=== PATIENT | male | born 1985 | race Caucasian/White ===

== ENCOUNTER → 2017-07-11 | Outpatient (CLI) | payer OTHER ==
[~2017-07-11] MED LIST: IBU800 M1 PO; TRAMADOL HCL50 MG PO
[2017-07-11 08:34] LABS: BUN 11 mg/dl (7-24); CHLORIDE 107 mmol/L (98-107); CHOLESTEROL 191 mg/dL (<200); CREATININE 1.09 mg/dL (0.70-1.30); FREE T4 0.74 ng/dl (0.76-1.46); HDL CHOLESTEROL 43 mg/dl (40-60); LDL CHOLESTEROL 111 mg/dL (9-159); SODIUM 140 mmol/L (136-145); TRIGLYCERIDES 186 mg/dl (<150); VLDL CHOLESTEROL 37 mg/dL (6-40)
[2017-07-11 09:15] LABS: VITAMIN D, 25-HYDROXY 30.3 ng/mL (30-100)
[2017-07-12 09:09] LABS: LUTEINIZING HORMONE 004283 6.8 mIU/mL (1.7-8.6); PROLACTIN 004465 11.7 ng/mL (4.0-15.2)
== END | disposition home or self-care (01) ==
LOC: LAB 07:27
PROVIDERS: Internal Medicine
DX: E29.1 Testicular hypofunction (principal); E55.9 Vitamin D deficiency, unspecified; E66.9 Obesity, unspecified

== ENCOUNTER → 2017-10-15 | Outpatient (CLI) | payer OTHER ==
[2017-10-15 12:49] LABS: VITAMIN D, 25-HYDROXY 23.2 ng/mL (30-100)
== END | disposition home or self-care (01) ==
LOC: LAB 10:23
PROVIDERS: Internal Medicine
DX: E55.9 Vitamin D deficiency, unspecified (principal); E29.1 Testicular hypofunction

== ENCOUNTER 2017-11-30 17:27 | Emergency (ER) | payer OTHER ==
[~2017-11-30] VITALS: Ht 187.9 cm; Wt 122.5 kg
[2017-11-30 18:02] LABS: BILIRUBIN 1+ (NEGATIVE); BLOOD TRACE-INTACT (NEGATIVE); CLARITY CLEAR (CLEAR); COLOR YELLOW (YELLOW); GLUCOSE NEGATIVE (NEGATIVE); KETONE NEGATIVE (NEGATIVE); LEUKO ESTERASE NEGATIVE (NEGATIVE); NITRITE NEGATIVE (NEGATIVE); SPECIFIC GRAVITY 1.025 (1.005-1.030)
[2017-11-30 18:05] LABS: RBC 0-2 rbc/hpf (0-2)
[2017-11-30 18:06] LABS: BACTERIA 1+; EPITHELIAL CELLS 0-2; MUCOUS TRACE
[2017-11-30 18:15] LABS: BASO % 0.4 % (0.0-1.0); EOS # 0.2 10*3/uL (0.0-0.4); EOS % 2.9 % (1.0-4.0); HEMATOCRIT 42.6 % (42.0-52.0); HEMOGLOBIN 14.1 g/dl (14.0-18.0); LYMPH # 0.6 10*3/uL (1.3-4.4); LYMPH % 8.3 % (27.0-41.0); MEAN CELL VOLUME 90.4 fl (80.0-94.0); MEAN CORPUSCULAR HGB 29.9 pg (27.0-31.0); MEAN CORPUSCULAR HGB CONC 33.1 g/dl (33.0-37.0); MEAN PLATELET VOLUME 9.2 fl (9.6-12.3); MONO # 0.5 10*3/uL (0.1-1.0); NEUT # 6.1 10*3/uL (2.3-7.9); PLATELET COUNT AUTOMATED 289 10*3/uL (130-400); RED BLOOD COUNT 4.71 10*6/uL (4.50-5.90); RED CELL DISTRI WIDTH 12.3 % (0-14.5); WHITE BLOOD COUNT 7.5 10*3/uL (4.8-10.8)
[2017-11-30 18:31] LABS: ALBUMIN 3.1 gm/dl (3.1-4.5); ALKALINE PHOSPHATASE 70 U/L (45-117); BUN 14 mg/dl (7-24); CHLORIDE 107 mmol/L (98-107); CREATININE 1.23 mg/dL (0.70-1.30); LIPASE 209 U/L (73-393); POTASSIUM 4.2 mmol/L (3.5-5.1); SGOT/AST 27 IU/L (3-35); SGPT/ALT 66 U/L (12-78); SODIUM 140 mmol/L (136-145); TOTAL PROTEIN 7.1 gm/dL (6.4-8.2)
[2017-11-30 20:07] LABS: INTERNATIONAL NORM RATIO 1.1 (2.0-3.5)
[2017-11-30] MEDS ORDERED: DEPO-TESTO100 MG/1 M IM (21:40)
== END 2017-12-01 00:05 | disposition short-term general hospital (02) ==
LOC: ED 17:27
PROVIDERS: Nurse Practitioner Family
DX: I81 Portal vein thrombosis (principal)

== ENCOUNTER → 2017-12-10 | Outpatient (CLI) | payer OTHER ==
[~2017-12-10] MED LIST changes: +DEPO-TESTO100 MG/1 M IM
[2017-12-10 13:31] LABS: INTERNATIONAL NORM RATIO 1.2 (2.0-3.5)
== END | disposition home or self-care (01) ==
LOC: LAB 12:51 → EDSTATUS 13:09 → LAB 13:10
DX: K75.1 Phlebitis of portal vein (principal); D68.62 Lupus anticoagulant syndrome

== ENCOUNTER → 2017-12-14 | Outpatient (CLI) | payer OTHER ==
[2017-12-14 09:19] LABS: INTERNATIONAL NORM RATIO 1.5 (2.0-3.5)
== END | disposition home or self-care (01) ==
LOC: LAB 08:15
DX: K75.1 Phlebitis of portal vein (principal); D68.62 Lupus anticoagulant syndrome

== ENCOUNTER → 2017-12-17 | Outpatient (CLI) | payer OTHER ==
[2017-12-17 14:31] LABS: INTERNATIONAL NORM RATIO 1.5 (2.0-3.5)
== END ==
LOC: LAB 13:28
PROVIDERS: Internal Medicine Hematology
DX: K75.1 Phlebitis of portal vein (principal); D68.62 Lupus anticoagulant syndrome

== ENCOUNTER → 2017-12-21 | Outpatient (CLI) | payer OTHER | END | disposition home or self-care (01) | LOC: CT 12:45 | DX: K76.0 Fatty (change of) liver, not elsewhere classified (principal); R16.1 Splenomegaly, not elsewhere classified; K57.30 Diverticulosis of large intestine without perforation or abscess without bleeding ==

== ENCOUNTER 2019-12-31 18:21 | Inpatient (IN) | payer OTHER ==
[~2019-12-31] VITALS: Ht 187.9 cm; Wt 126.6 kg
[2019-12-31 18:24] VITALS: BP 160/107
[2019-12-31 18:50] LABS: BASO % 0.3 % (0.0-1.0); EOS # 0.3 10*3/uL (0.0-0.4); EOS % 2.6 % (1.0-4.0); HEMATOCRIT 50.1 % (42.0-52.0); HEMOGLOBIN 16.5 g/dl (14.0-18.0); LYMPH # 1.4 10*3/uL (1.3-4.4); LYMPH % 12.2 % (27.0-41.0); MEAN CELL VOLUME 92.9 fl (80.0-94.0); MEAN CORPUSCULAR HGB 30.6 pg (27.0-31.0); MEAN CORPUSCULAR HGB CONC 32.9 g/dl (33.0-37.0); MEAN PLATELET VOLUME 10.3 fl (9.6-12.3); MONO # 0.9 10*3/uL (0.1-1.0); NEUT # 8.7 10*3/uL (2.3-7.9); NEUT % 76.5 % (47.0-73.0); PLATELET COUNT AUTOMATED 206 10*3/uL (130-400); RED BLOOD COUNT 5.39 10*6/uL (4.50-5.90); RED CELL DISTRI WIDTH 12.6 % (0-14.5); WHITE BLOOD COUNT 11.4 10*3/uL (4.8-10.8)
[2019-12-31 19:01] LABS: ACT PARTIAL THROMBO TIME 26.5 SECONDS (20.0-32.1)
[2019-12-31 19:07] LABS: ALKALINE PHOSPHATASE 68 U/L (45-117); BUN 24 mg/dl (7-24); CHLORIDE 109 mmol/L (98-107); CREATININE 1.41 mg/dL (0.70-1.30); POTASSIUM 4.1 mmol/L (3.5-5.1); SGOT/AST 23 IU/L (3-35); SGPT/ALT 55 U/L (12-78); SODIUM 141 mmol/L (136-145); TOTAL PROTEIN 7.8 gm/dL (6.4-8.2)
--- NOTE | 2019-12-31 19:27 | NUR ---
REPORT RECEIVED FROM RAMAKRISHNA PIPER RN.
--- NOTE | 2019-12-31 19:37 | NUR ---
PT TO CT.
[2019-12-31 20:07] VITALS: BP 132/90
--- NOTE | 2019-12-31 21:15 | NUR ---
DR. VIKTORIYA GOLDBERG IN ROOM DOING HER ASSESSMENT I GO TO GIVE THE LOVENOX SHE STATES THAT SHE WOULD LIKE ME TO HOLD THE LOVENOX DUE TO IT MAKING THE PT SICK. SHE REPORTS THAT SHE WILL ORDER A HEPARIN DRIP. GURMEET GUPTA MADE AWARE AND OK WITH THIS.
[2019-12-31 21:20] VITALS: BP 142/99
--- NOTE | 2019-12-31 21:20 | NUR ---
A 34 YEAR OLD MALE PATIENT, admitted to [facility], under the services of TRISTA Anderson DO with a diagnosis of MULTIPLE PULMONARY EMBOLISMS Chief complaint is INCREASED FATIGUE, SHORTNESS OF BREATH, AND CHEST HEAVINESS. Patient arrived via CART WITH RN from ER. Monitor applied. Initial assessment completed. Vital signs taken and recorded. See assessment for past medical history, medications and allergies. Patient and/or family oriented to unit. [facility] visitation policy reviewed. Clothing/patient valuable form completed. SONYA MICHEL
--- NOTE | 2019-12-31 21:43 | NUR ---
PATIENT ADMINISTERED PRN XANAX AND PRN MORPHINE PER DRS ORDERS FOR COMPLAINTS OF PAIN IN THE BACK/CHEST ARE R/T BREATHING, AND COMPLAINTS OF ANXIETY R/T ILLNESS AND HOSPITALIZATION. RN WILL MONITOR
--- NOTE | 2019-12-31 22:18 | NUR ---
MEDICATION RECONCILLIATION COMPLETED-PATIENT TAKES NO HOME MEDICATIONS
--- NOTE | 2019-12-31 22:23 | NUR ---
MESSAGE LEFT WITH [facility] REGARDING CONSULT, STATE THEY WILL PUT CALL OUT AND SOMEONE WILL BE IN TOUCH
--- NOTE | 2019-12-31 22:31 | NUR ---
SPOKE WITH DR BALLARD REGARDING CONSULT, NO NEW ORDERS AT THIS TIME, STATES TO CALL IF ANYTHING CHANGES, AND THE CARDIOLOGY GROUP WILL SEE PATIENT IN THE MORNING
--- NOTE | 2019-12-31 22:50 | NUR ---
PATIENT SAID EARLIER MEDICATIONS WERE SLIGHTLY EFFECTIVE.REQUESTING SOMETHING TO HELP SLEEP AFTER NEXT EKG AND LAB WORK.
--- NOTE | 2019-12-31 23:41 | NUR ---
DR GOLDBERG CALLED REGARDING PATIENTS REQUEST TO HAVE SOMETHING TO HELP HIM SLEEP. 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 ORDERS RECIEVED
[2020-01-01] VITALS: BP 128/87
--- NOTE | 2020-01-01 00:16 | NUR ---
MEDICATED WITH RESTORIL FOR COMPLAINTS OF INABILITY TO SLEEP. RN WILL MONITOR FOR EFFECTIVENESS OF MEDICATION
--- NOTE | 2020-01-01 01:30 | NUR ---
PATIENT LAYING IN BED WITH EYES CLOSED, APPEARS TO BE SLEEPING. EALRIER MEDICATION SEEMS TO HAVE BEEN EFFECTIVE IN REDUCING PATIENTS COMPLINTS.
[2020-01-01 04:00] VITALS: BP 111/79
--- NOTE | 2020-01-01 04:00 | NUR ---
CONSENT OBTAINED FOR MEDICAL RECORDS FROM [facility]
--- NOTE | 2020-01-01 04:27 | NUR ---
HEPARIN ON HOLD AT THIS TIME
[2020-01-01 04:32] LABS: BUN 23 mg/dl (7-24); CHLORIDE 111 mmol/L (98-107); CHOLESTEROL 159 mg/dL (<200); CREATININE 1.29 mg/dL (0.70-1.30); HDL CHOLESTEROL 31 mg/dl (40-60); LDL CHOLESTEROL 86 mg/dL (9-159); PHOSPHOROUS 4.3 mg/dL (2.5-4.9); POTASSIUM 3.6 mmol/L (3.5-5.1); SODIUM 142 mmol/L (136-145); TRIGLYCERIDES 208 mg/dl (<150); VLDL CHOLESTEROL 42 mg/dL (6-40)
[2020-01-01 05:53] LABS: BASO % 0.5 % (0.0-1.0); EOS # 0.4 10*3/uL (0.0-0.4); EOS % 4.7 % (1.0-4.0); HEMATOCRIT 46.6 % (42.0-52.0); HEMOGLOBIN 15.4 g/dl (14.0-18.0); LYMPH # 1.9 10*3/uL (1.3-4.4); LYMPH % 24.6 % (27.0-41.0); MONO # 0.7 10*3/uL (0.1-1.0); MONO % 8.8 % (3.0-9.0); NEUT # 4.8 10*3/uL (2.3-7.9); NEUT % 60.9 % (47.0-73.0); PLATELET COUNT AUTOMATED 179 10*3/uL (130-400); RED BLOOD COUNT 4.96 10*6/uL (4.50-5.90); RED CELL DISTRI WIDTH 12.7 % (0-14.5); WHITE BLOOD COUNT 7.8 10*3/uL (4.8-10.8)
--- NOTE | 2020-01-01 05:56 | NUR ---
PATIENT MEDICATED WITH MORPHINE PER DRS ORDERS FOR COMPLAINTS OF 6/10 PAIN TO THE CHEST/LUNG WALL. PATIENT STATES IT IS HURTING TO TAKE A DEEP BREATH AGAIN. RN WILL MONITOR FOR EFFECTIVENESS
--- NOTE | 2020-01-01 06:48 | NUR ---
PATIENT RESTING COMFORTABLY WITH EYES CLOSED, EASILY AWAKENS TO VOICE, STATES PAIN MEDICATION HAD HELPED DECREASE PAIN LEVEL "SOME" RN WILL CONTINUE TO MONITOR
[2020-01-01 07:57] LABS: VITAMIN D, 25-HYDROXY 23.9 ng/mL (30-100)
[2020-01-01 08:00] VITALS: BP 110/64
--- NOTE | 2020-01-01 08:52 | NUR ---
XANAX FOR ANXIETY
[2020-01-01 12:00] VITALS: BP 114/92
--- NOTE | 2020-01-01 12:01 | NUR ---
TYLENOL FOR "JUST A LITTLE BIT" OF LUNG PAIN
--- NOTE | 2020-01-01 13:14 | NUR ---
HEPARIN DRIP RESUMED AT 12 UNITS/KG
--- NOTE | 2020-01-01 14:15 | NUR ---
TRANSFERRED TO [facility] VIA [facility]
== END 2020-01-01 14:15 | disposition short-term general hospital (02) | DRG 280 ==
LOC: ED 18:21 → EDHOLD 20:48 → ICCU 21:02
PROVIDERS: Emergency Medicine; Student in an Organized Health Care Education/Training Program; ADMIT Internal Medicine
DX: I21.4 Non-ST elevation (NSTEMI) myocardial infarction (principal); I26.99 Other pulmonary embolism without acute cor pulmonale; N17.0 Acute kidney failure with tubular necrosis; J96.01 Acute respiratory failure with hypoxia; R65.10 Systemic inflammatory response syndrome (SIRS) of non-infectious origin without acute organ dysfunction; E87.8 Other disorders of electrolyte and fluid balance, not elsewhere classified; R73.9 Hyperglycemia, unspecified; E83.41 Hypermagnesemia

== ENCOUNTER → 2020-07-02 | Outpatient (CLI) | payer OTHER ==
[2020-07-02 08:53] LABS: BASO % 0.2 % (0.0-1.0); EOS # 0.1 10*3/uL (0.0-0.4); EOS % 3.1 % (1.0-4.0); HEMATOCRIT 44.4 % (42.0-52.0); LYMPH # 0.8 10*3/uL (1.3-4.4); MEAN CELL VOLUME 92.3 fl (80.0-94.0); MEAN CORPUSCULAR HGB 30.6 pg (27.0-31.0); MEAN CORPUSCULAR HGB CONC 33.1 g/dl (33.0-37.0); MEAN PLATELET VOLUME 10.1 fl (9.6-12.3); MONO # 0.5 10*3/uL (0.1-1.0); MONO % 12.2 % (3.0-9.0); NEUT # 2.8 10*3/uL (2.3-7.9); NEUT % 66.3 % (47.0-73.0); PLATELET COUNT AUTOMATED 179 10*3/uL (130-400); RED BLOOD COUNT 4.81 10*6/uL (4.50-5.90); WHITE BLOOD COUNT 4.2 10*3/uL (4.8-10.8)
[2020-07-02 09:25] LABS: ALBUMIN 3.6 gm/dl (3.1-4.5); ALKALINE PHOSPHATASE 49 U/L (45-117); BUN 14 mg/dl (7-24); CHLORIDE 109 mmol/L (98-107); CHOLESTEROL 174 mg/dL (<200); CREATININE 1.09 mg/dL (0.70-1.30); HDL CHOLESTEROL 47 mg/dl (40-60); LDL CHOLESTEROL 112 mg/dL (9-159); POTASSIUM 4.2 mmol/L (3.5-5.1); SGOT/AST 20 IU/L (3-35); SGPT/ALT 42 U/L (12-78); SODIUM 141 mmol/L (136-145); TOTAL PROTEIN 6.8 gm/dL (6.4-8.2); TRIGLYCERIDES 75 mg/dl (<150); VLDL CHOLESTEROL 15 mg/dL (6-40)
== END | disposition home or self-care (01) ==
LOC: LAB 08:03
PROVIDERS: Nurse Practitioner Family
DX: Z51.81 Encounter for therapeutic drug level monitoring (principal); I26.99 Other pulmonary embolism without acute cor pulmonale; I10 Essential (primary) hypertension

== ENCOUNTER → 2020-11-15 | Outpatient (CLI) | payer OTHER | END | disposition home or self-care (01) | LOC: COVID19 09:17 | PROVIDERS: ATTEND Nurse Practitioner Family | DX: Z20.828 Contact with and (suspected) exposure to other viral communicable diseases (principal); J34.89 Other specified disorders of nose and nasal sinuses ==

== ENCOUNTER → 2020-12-24 | Outpatient (CLI) | payer OTHER ==
[~2020-12-24] MED LIST changes: +COLCHICINE0.6 M1 PO
== END | disposition home or self-care (01) ==
LOC: COVID19 09:34
PROVIDERS: ATTEND Nurse Practitioner Family
DX: U07.1 COVID-19 (principal)

== ENCOUNTER 2021-01-08 19:34 | Emergency (ER) | payer OTHER ==
[~2021-01-08] VITALS: Ht 187.9 cm; Wt 122.5 kg
[~2021-01-08 19:34] MED LIST changes: -COLCHICINE0.6 M1 PO
[2021-01-08 20:53] LABS: BASO % 0.2 % (0.0-1.0); EOS # 0.1 10*3/uL (0.0-0.4); EOS % 0.7 % (1.0-4.0); HEMATOCRIT 44.2 % (42.0-52.0); LYMPH # 1.2 10*3/uL (1.3-4.4); MEAN CELL VOLUME 91.7 fl (80.0-94.0); MEAN CORPUSCULAR HGB 31.1 pg (27.0-31.0); MEAN CORPUSCULAR HGB CONC 33.9 g/dl (33.0-37.0); MEAN PLATELET VOLUME 9.8 fl (9.6-12.3); MONO # 0.9 10*3/uL (0.1-1.0); MONO % 8.7 % (3.0-9.0); NEUT # 8.1 10*3/uL (2.3-7.9); NEUT % 78.1 % (47.0-73.0); PLATELET COUNT AUTOMATED 193 10*3/uL (130-400); RED BLOOD COUNT 4.82 10*6/uL (4.50-5.90); RED CELL DISTRI WIDTH 12.6 % (0-14.5); WHITE BLOOD COUNT 10.3 10*3/uL (4.8-10.8)
[2021-01-08 21:08] LABS: ALBUMIN 3.8 gm/dl (3.1-4.5); ALKALINE PHOSPHATASE 60 U/L (45-117); BUN 19 mg/dl (7-24); CHLORIDE 108 mmol/L (98-107); CREATININE 1.26 mg/dL (0.70-1.30); POTASSIUM 3.6 mmol/L (3.5-5.1); SGOT/AST 21 IU/L (3-35); SGPT/ALT 88 U/L (12-78); SODIUM 140 mmol/L (136-145); TOTAL PROTEIN 7.4 gm/dL (6.4-8.2)
[2021-01-08 21:22] LABS: ACT PARTIAL THROMBO TIME 21.2 SECONDS (20.0-32.1); INTERNATIONAL NORM RATIO 0.9 (2.0-3.5)
[2021-01-08] MEDS ORDERED: COLCHICINE0.6 M1 PO (23:07)
== END 2021-01-09 00:45 | disposition home or self-care (01) ==
LOC: ED 19:34
PROVIDERS: Nurse Practitioner Family
DX: M10.9 Gout, unspecified (principal); Z91.041 Radiographic dye allergy status

== ENCOUNTER 2024-06-07 23:37 | Inpatient (IN) | payer OTHER ==
[~2024-06-07] VITALS: Ht 187.9 cm; Wt 124.7 kg
[~2024-06-07 23:37] MED LIST changes: +COLCHICINE0.6 M1 PO
[2024-06-08] VITALS (7 sets, daily range): BP systolic 128–156; BP diastolic 68–105
[2024-06-08] MEDS ORDERED: HEPARIN SODIUM 250 ML IV ONE (00:10)
[2024-06-08 00:11] LABS: BASO # 0.1 10*3/uL (0.0-0.1); BASO % 0.5 % (0.0-1.0); EOS # 0.4 10*3/uL (0.0-0.4); EOS % 3.5 % (1.0-4.0); HEMATOCRIT 47.3 % (42.0-52.0); LYMPH # 1.9 10*3/uL (1.3-4.4); LYMPH % 16.8 % (27.0-41.0); MEAN CELL VOLUME 91.3 fl (80.0-94.0); MEAN CORPUSCULAR HGB 30.1 pg (27.0-31.0); MEAN PLATELET VOLUME 10.1 fl (9.6-12.3); MONO # 0.9 10*3/uL (0.1-1.0); MONO % 8.3 % (3.0-9.0); NEUT # 7.8 10*3/uL (2.3-7.9); NEUT % 70.4 % (47.0-73.0); PLATELET COUNT AUTOMATED 162 10*3/uL (130-400); RED BLOOD COUNT 5.18 10*6/uL (4.50-5.90); RED CELL DISTRI WIDTH 12.8 % (0-14.5); WHITE BLOOD COUNT 11.1 10*3/uL (4.8-10.8)
[2024-06-08 00:32] LABS: ALKALINE PHOSPHATASE 62 U/L (46-116); BUN 11 mg/dl (9-23); CHLORIDE 106 mmol/L (98-107); POTASSIUM 3.7 mmol/L (3.4-5.1); SGPT/ALT 37 U/L (5-49); TOTAL PROTEIN 7.4 gm/dL (6.0-8.0)
[2024-06-08] MEDS ORDERED: LORazepam 0.5 MG TAB PO ONE (01:05)
[2024-06-08] MEDS ORDERED: ACETAMINOPHEN 325 MG TAB PO PRN (09:25)
[2024-06-08] MEDS ORDERED: SODIUM CHLORIDE 0.9% 500 ML IV ONE (09:30)
[2024-06-08] MEDS ORDERED: ALLOPURINOL100 MG PO (11:41)
[2024-06-08] MEDS ORDERED: ELIQUIS5 M1 PO (11:41)
[2024-06-08] MEDS ORDERED: HEPARIN SODIUM 250 ML IV SCH (14:00)
[2024-06-09 05:44] VITALS: BP 130/91
[2024-06-09 05:49] LABS: ALKALINE PHOSPHATASE 49 U/L (46-116); BUN 11 mg/dl (9-23); CHLORIDE 111 mmol/L (98-107); POTASSIUM 4.1 mmol/L (3.4-5.1); SGPT/ALT 32 U/L (5-49); TOTAL PROTEIN 6.4 gm/dL (6.0-8.0)
[2024-06-09 06:28] LABS: BASO % 0.6 % (0.0-1.0); EOS # 0.3 10*3/uL (0.0-0.4); EOS % 6.2 % (1.0-4.0); HEMATOCRIT 42.9 % (42.0-52.0); LYMPH # 1.2 10*3/uL (1.3-4.4); MEAN CELL VOLUME 89.4 fl (80.0-94.0); MEAN CORPUSCULAR HGB 30.4 pg (27.0-31.0); MEAN PLATELET VOLUME 10.9 fl (9.6-12.3); MONO # 0.5 10*3/uL (0.1-1.0); MONO % 10.1 % (3.0-9.0); NEUT # 2.9 10*3/uL (2.3-7.9); NEUT % 58.9 % (47.0-73.0); RED CELL DISTRI WIDTH 12.8 % (0-14.5); WHITE BLOOD COUNT 4.9 10*3/uL (4.8-10.8)
[2024-06-09 06:29] LABS: PLATELET COUNT AUTOMATED 108 10*3/uL (130-400)
[2024-06-09] MEDS ORDERED: ALLOPURINOL 100 MG TAB PO SCH (10:00)
[2024-06-09 10:48] VITALS: BP 129/88
[2024-06-09 14:19] VITALS: BP 141/93
[2024-06-09 22:15] VITALS: BP 140/88
[2024-06-10] MEDS ORDERED: ZOLPIDEM10 MG PO (00:21)
[2024-06-10] MEDS ORDERED: MIXED AMPHETAMI30 MG PO (00:22)
[2024-06-10] MEDS ORDERED: ZOLPIDEM TARTRATE 10 MG TAB PO PRN (00:30)
[2024-06-10 06:12] LABS: BUN 9 mg/dl (9-23); CHLORIDE 109 mmol/L (98-107); POTASSIUM 4.1 mmol/L (3.4-5.1)
[2024-06-10 06:13] LABS: BASO % 0.4 % (0.0-1.0); EOS # 0.2 10*3/uL (0.0-0.4); EOS % 4.9 % (1.0-4.0); HEMATOCRIT 41.7 % (42.0-52.0); LYMPH % 22.4 % (27.0-41.0); MEAN CELL VOLUME 92.3 fl (80.0-94.0); MEAN CORPUSCULAR HGB 30.8 pg (27.0-31.0); MEAN CORPUSCULAR HGB CONC 33.3 g/dl (33.0-37.0); MEAN PLATELET VOLUME 10.4 fl (9.6-12.3); MONO # 0.5 10*3/uL (0.1-1.0); NEUT # 2.7 10*3/uL (2.3-7.9); NEUT % 60.9 % (47.0-73.0); PLATELET COUNT AUTOMATED 113 10*3/uL (130-400); RED BLOOD COUNT 4.52 10*6/uL (4.50-5.90); RED CELL DISTRI WIDTH 12.7 % (0-14.5); WHITE BLOOD COUNT 4.5 10*3/uL (4.8-10.8)
[2024-06-10 08:00] VITALS: BP 114/80
[2024-06-10] MEDS ORDERED: ELIQUIS5 M1 PO (09:08)
[2024-06-10] MEDS ORDERED: PHARMASSURE V500 MCG PO (09:08)
[2024-06-10] MEDS ORDERED: CYANOCOBALAMIN 500 MCG TAB PO SCH (10:00)
== END 2024-06-10 11:57 | disposition home or self-care (01) | DRG 682 ==
LOC: ED 23:37 → EDHOLD 06-08 08:52 → 4E 06-09 21:23
PROVIDERS: Emergency Medicine; Student in an Organized Health Care Education/Training Program; ADMIT Student in an Organized Health Care Education/Training Program; ATTEND Student in an Organized Health Care Education/Training Program
DX: N17.0 Acute kidney failure with tubular necrosis (principal); I81 Portal vein thrombosis; K55.069 Acute infarction of intestine, part and extent unspecified; R65.10 Systemic inflammatory response syndrome (SIRS) of non-infectious origin without acute organ dysfunction; I82.411 Acute embolism and thrombosis of right femoral vein; I82.431 Acute embolism and thrombosis of right popliteal vein; I82.451 Acute embolism and thrombosis of right peroneal vein; I10 Essential (primary) hypertension; R73.9 Hyperglycemia, unspecified; M1A.09X0 Idiopathic chronic gout, multiple sites, without tophus (tophi); F90.1 Attention-deficit hyperactivity disorder, predominantly hyperactive type; E53.8 Deficiency of other specified B group vitamins; Z91.041 Radiographic dye allergy status; Z81.8 Family history of other mental and behavioral disorders; Z86.711 Personal history of pulmonary embolism

== ENCOUNTER 2025-06-03 21:24 | Emergency (ER) | payer OTHER ==
[~2025-06-03 21:24] MED LIST changes: +ALLOPURINOL100 MG PO; +ELIQUIS5 M1 PO; +MIXED AMPHETAMI30 MG PO; +PHARMASSURE V500 MCG PO; +ZOLPIDEM10 MG PO
[2025-06-03 22:03] LABS: BASO # 0.0 10*3/uL (0.0-0.1); BASO % 0.3 % (0.0-1.0); EOS # 0.2 10*3/uL (0.0-0.4); EOS % 1.8 % (1.0-4.0); MEAN CELL VOLUME 91.2 fl (80.0-94.0); MEAN CORPUSCULAR HGB 30.5 pg (27.0-31.0); MEAN PLATELET VOLUME 10.1 fl (9.6-12.3); MONO # 0.9 10*3/uL (0.1-1.0); MONO % 9.6 % (3.0-9.0); NEUT # 7.3 10*3/uL (2.3-7.9); NEUT % 76.9 % (47.0-73.0); NUCLEATED RED BLOOD CELL 0.0 % (0.0-0.0); NUCLEATED RED BLOOD CELL 0.0 10*3/uL (0.0-0.0); PLATELET COUNT AUTOMATED 143 10*3/uL (130-400); RED CELL DISTRI WIDTH 13.1 % (0-14.5)
[2025-06-03 22:19] LABS: BUN 12 mg/dl (9-23); SGPT/ALT 58 U/L (5-49)
[2025-06-03] MEDS ORDERED: Ciprofloxacin Hydrochloride 500 MG TAB PO ONE (23:25)
[2025-06-03] MEDS ORDERED: metroNIDAZOLE 500 MG TAB PO ONE (23:25)
[2025-06-03] MEDS ORDERED: CIPRO500 MG PO (23:32)
[2025-06-03] MEDS ORDERED: METRONIDAZOLE500 M1 PO (23:32)
== END 2025-06-03 23:51 | disposition home or self-care (01) ==
LOC: ED 21:24
PROVIDERS: Internal Medicine
DX: K57.32 Diverticulitis of large intestine without perforation or abscess without bleeding (principal); Z79.899 Other long term (current) drug therapy; Z91.041 Radiographic dye allergy status